=== PATIENT | male | born 1950 | race Caucasian/White ===

== ENCOUNTER 2020-04-10 14:44 | Inpatient (IN) | payer OTHER ==
[~2020-04-10] VITALS: Ht 172.7 cm; Wt 56.9 kg
[2020-04-10] MEDS ORDERED: ABILIFY 5 MG TAB5 MG PO (20:36)
[2020-04-10] MEDS ORDERED: GABAPENTIN100 MG PO (20:38)
[2020-04-10] MEDS ORDERED: GLUCOPHAGE XR500 M1 PO (20:39)
[2020-04-10] MEDS ORDERED: ZOLOFT 50 MG TA50 MG PO (20:39)
[2020-04-10] MEDS ORDERED: ZESTRIL10 MG PO (20:39)
[2020-04-10] MEDS ORDERED: ZOCOR 10 MG TAB10 MG PO (20:39)
[2020-04-10 22:30] VITALS: BP 126/58
--- NOTE | 2020-04-11 02:40 | NUR ---
PATIENT ADMITTED TO [facility] FROM [facility] ED. NEGATIVE COVID 19PCR. PATIENT CAME BY STRETCHER. HE DID NOT HAVE ANY BELONGINGS. HE HAD GOWN ON. PATIENT IS A/0X3. HE CAME FROM [facility]. HE CAME FROM [facility]. YESTERDAY PATIENT WAS THREATINING SUICIDE WITH CORDS IN HIS ROOM. HE HAS DENIED SI/HI HERE ON [facility]. HE STATES HE IS PARALYZED FROM WAIST DOWN AND IS NOT ABLE TO HOLD THINGS IN HIS HANDS WELL. HE HAD A CONDOM CATHETER ON THAT EMS HAD PLACED HE SAID. THIS CAME OFF AND CATHETER DISCARDED. PATIENT DOES VOID WITHOUT PROBLEMS. HE IS INCONTINENT. ED REPORT [place] STATES THAT MS SAID PATIENT WALKS. PATIENT WAS IN BED ALL NIGHT AND DENIES BEING ABLE TO WALK. PATIENT HAS CHRONIC NECK/BACK PAIN. HYDROCODONE 325/5MG PO ORDERED BY DR. HALEY ONE TIME [facility]. PATIENT BEING TURNED PRN AND INCONTINENCE CHECKS. PATIENT HAS HX OF HTN, AND DM. HE HAS PARANOID SCHIZOPHRENIA HISTORY AND DEPRESSION, ANXIETY. PATIENT HAS BEEN CALLING OUT AND ANXIOUS. MEDS ORDERED AND TRAZADONE 50MG AND HYDROXIZINE SANTA 50MG GIVEN TO HELP PATIENT SLEEP ONCE RECEIVED ON UNIT. HYDROCODONE DID HELP RELEIVE PAIN FROM 8 TO 2. PATIENT APPEARS TO BE SLEEPING IN BED. BED IN LOW POSITION AND BED ALARM ON. ROUTINE ROUNDS TO ASSESS SAFETY AND STATUS OF PATIENT. VSS. POSITIVE BOWEL SOUNDS X 4. ABDOMEN SOFT/NONTENDER, LCTA BILATERALLY, HEART S1S2 HEARD AND REGULAR. NO WOUNDS SEEN AT THIS TIME. CONTINUING TO MONITOR. PATIENT HAS MEDICARE A AND B. PATIENT VERBALIZED CONSENT OK BUT IS UNABLE TO SIGN. HE IS A VOLUNTARY ADMIT.
[2020-04-11 09:13] VITALS: BP 108/54
--- NOTE | 2020-04-11 15:19 | NUR ---
SW met with pt. she also completed a slums in which pt scored a 15/30. SLUMS may need to be repeated because during assessment pt yelled out in pain several times about his hip. He also did not participate in areas such as the clock because he says he cannot use his hands and has to be fed. Pt said he is homeless. Before going to [facility] and [facility] he was in a program called [employer] that serves the homeless. He said his son he has been estranged from for approx. 5 years; he lives some where in [facility]. His brother committed sx 1 year ago. SW team will continue to follow pt during his stay on this unit.
--- NOTE | 2020-04-11 15:19 | NUR ---
Alert and orientated X4. States he has a severe spinal cord injury X2 and is unable to walk, feed himself. States he has low back pain. Multiple requests to feed, toilet, reposition. At times is able to bear wt, at other times does not bear any wt. Seen picking up food and eating but then states he needs to be fed. States he has had several thoughts of suicide prior and since admission but does not verbalize a plan. Denies HI. Breath sounds clear t/o, bilaterally equal. Reg HR auscultated. Color pink with brisk capillary refill and palpable peripheral pulses. Incontinent of large amt yellow urine. Attempted to have BM X 2 without success. Active bowel sounds over soft, flat abdomen. Dr. Garcia contacted r/t pain, meds given per order. Up to WC most of AM, placed in gerichair after lunch. Currently in bed.
[2020-04-11 20:15] VITALS: BP 107/52
[2020-04-11 20:46] VITALS: BP 107/52
--- NOTE | 2020-04-12 03:07 | NUR ---
PATIENT VERY FUSSY AND NEEDY. HE CAN DO MORE THAN HE SAYS HE CAN DO AND DOES LIKE THE ATTENTION OF BEING WAITED ON. PATIENT STATES TONIGHT THAT HE NEEDS TO GET OUT OF HERE [facility] BECAUSE HE HAS BACK SURGERY ON MONDAY 04/16. HE TOLD ME IT WAS [facility]. PT RINGING HIS ECKERT TO HAVE HIS PILLOW PLACED UNDER HIS HEAD. HE WAS GIVEN PRN HYDROXYZINE AND HYDROCODONE AT HS FOR HIS BACK PAIN OF 8/10 AFTER HAVING TYLENOL 3 HOURS EARLIER. HE IS INCONTINENT AND HAS VOIDED X3 TONIGHT. BED IN LOW POSITION AND BED ALARM ON. HE DENIES SI/HI/AVH. PATIENT IS WANTING TO WORK WITH PT/OT SOON. CONTINUING TO ASSESS FOR SAFETY AND STATUS OF PATIENT.
[2020-04-12 09:59] VITALS: BP 123/62
--- NOTE | 2020-04-12 11:32 | NUR ---
VIRA contacted Lacho Clifford to see if he had ever worked with pt. He said he has not. VIRA contacted Henrietta to speak to his showcase trimmer. VIRA was told by the conditioner tumbler operator that pt is no longer active in their system. VIRA inquired why and was transferred to another line where SW left a msg. SW team will continue to follow pt during her stay on this unit.
[2020-04-12 12:40] VITALS: BP 123/62
--- NOTE | 2020-04-12 14:57 | NUR ---
ASSUMED PATIENT CARE AT 0700, PATIENT WAS IN THE DAY ROOM.HIS VITAL SIGNS WERE STABLE. PATIENT WAS NEEDY, HE COMPLAINED OF LEFT HIP PAIN AND ASKED TO BE REPOSITIONED EVERY 5 MINUTES, HE WAS IRRITABLE AND CALLING OUT FOR HELP MOST PART OF THE MORNING AFTER BREAKFAST. AT BREAKFAST PATIENT STATED THAT HIS HANDS FEELS LIKE HARRIS BITE, HE ALSO STATED HIS HANDS FEELS NUMB. PATIENT DUMPED HIS COFFEE AT BREAKFAST ON THE FLOOR, PATIENT STATED HE DUMPED HIS COFFEE BECAUSE IT WAS TOO HOT. PATIENT STATED HIS GOAL WAS TO HELP FEED HIS SELF. OT WORKED WITH HIM. PATIENT WAS ABLE TO PARTIALLY ACHIEVE HIS GOAL DURING LUNCH.HIS CONCERN WAS ABOUT HIS CONSULTATION WITH A HOSPITAL SURGEON. HE ATE 100% OF HIS LUNCH WITH ASSISTANCE. HE WAS ABLE TO USE A SPOON RAPPED AROUND A WASH CLOTH TO EAT. HOWEVER HE STILL NEEDS HELP PICKING UP THE FOOD.
--- NOTE | 2020-04-12 16:43 | NUR ---
PT YELLING HELP AND STATED HE VOIDED AND DIDN'T HAVE A URINAL. PT WANTED SOMETHING FOR PAIN AND MENTIONED HYDROXYZIN. ADM HYDROCODONE 5MG PO AND HYDROXYZIN 50MG PO. PT WANTED NURSE TO HELP WITH HIS LEFT LEG TO PUT IT DOWN ON THE BED. PT SEEMS STIFF IN LOWER EXT.
--- NOTE | 2020-04-12 17:00 | NUR ---
PT WAS ASSISTED TO VLADIMIR CHAIR TO DINING ROOM. PT NEEDS ASSISTANCE WITH EATING.
[2020-04-12 20:30] VITALS: BP 109/51
--- NOTE | 2020-04-13 03:07 | NUR ---
Assumed care of patient this pm shift. Patient alert and oriented x3. Patient takes medications whole with thin fluids. Vital signs are stable. Patient is considered a falls risk, falls precautions in place. Patients affect is euthymic. Normal speech and tone. No delusions or hallucinations noted. Patient denies hi/si. Assessment shows no signs of acute distress. We will continue to monitor per hospital policy.
[2020-04-13 08:16] VITALS: BP 119/65
[2020-04-13 08:30] VITALS: BP 119/65
--- NOTE | 2020-04-13 09:40 | NUR ---
PT LYING IN BED AND WANTING HELP WITH CHANGING HIM, HE SAID HE WAS INCON. OF URINE. PT STATED HE WAS GETTING WORSE AND WANTED TO GO TO ER. PT HANDS WEAKNESS BILATERALY. PT STRAIGHTENED OUT LEGS AND WAS SHAKING. PT DIDN'T HAVE THE SHAKING TO EXT. SOMEONE THAT IS PARALIZED. PT TOOK MEDS WHOLE WITH WATER. PT GETTING FED BREAKFAST THIS AM BY AIDE. PT DRANK ALL OF ENSURE DRINKS.
--- NOTE | 2020-04-13 09:41 | NUR ---
ADM HYDROCODONE 5MG PO AND HYDROXYZIN 50MG PO FOR PAIN TO BACK AND ALSO ANXIETY.
--- NOTE | 2020-04-13 17:23 | NUR ---
ADM HYDROCODONE 5MG PO FOR PAIN TO BACK OF 7 ON 1-10 SCALE AND HYDROXYZIN 50MG PO FOR ANXIETY. PT LYING IN BED AND INCON OF URINE, HE IS AWARE OF URINE INCON AND WANTS CHANGED. PT ABLE TO ROLE IN BED SIDE TO SIDE WITH ASSIST. SEEMS WHEN PT HEAD IS PUT DOWN HE HAS A SPASM TO LEGS. PT DID GET UP IN VLADIMIR CHAIR FOR BREAKFAST.
[2020-04-13 19:46] VITALS: BP 116/53
--- NOTE | 2020-04-14 03:56 | NUR ---
04-13-20 CARE TRANSFERRED 1899 OBSERVED PT SUPINE IN BED ON CHUX. PT AAOX4, VSS, RR EVEN AND NONLABORED ON RA. PT DENIES SI/HI. PT REPORTS PAIN IN LOWER BACK AND SCALES 7 ON 0-10 SCALE. PT WAS REPOSITION FOR COMFORT. DURING MEDICATION ADMIN PT HAD NO DIFFICULTIES AND PT WAS REPOSITION AGAIN FOR COMFORT AND PT IS FREE OF BRIEF, REDNESS NOTED IN JENNY AREA, ZERO SKIN BREAKDOWN. LATER NOTED PT WAS NOT RESTING AND PRN MEDICATION ADMIN AND PT WAS REPOSITION. LATER NOTED PT RESTING WITH EYES CLOSED; ZERO S/S OF ACUTE DISTRESS NOTED. PT WILL CONTINUE TO BE MONITOR PER [facility] PROTOCOL.
[2020-04-14 09:18] VITALS: BP 106/52
[2020-04-14 20:14] VITALS: BP 117/48
--- NOTE | 2020-04-15 01:56 | NUR ---
04-14-20 CARE TRANSFERRED 1900 OBSERVED PT SITTING IN [facility] IN DAY ROOM WATCHING TV. PT AAOX4, VSS, RR EVEN AND NONLABORED ON RA, PT REPORTS PAIN IN LOWER BACK AND SCORES 7 ON 0-10 SCALE. PT PRESENTS IRRITABLE AND DEMANDING BUT HAS BEEN COOPERATIVE THROUGHOUT NURSING ASSESSMENT. PT REQUESTED FLUID AND PT DRANK TWO APPLE JUICE BOXES. DURING MEDICATION ADMIN PT HAD NO DIFFICULTIES. PT WAS ASSISTED TO ROOM BY RN AND RETORT FURNACE HELPER AND DRY BRIEF APPLIED AND JENNY-AREA CLEANED WITH SOAP AND WATER NOTED REDNESS, NO SKIN BREAKDOWN. LATER PT WAS REPOSITION FOR COMFORT AND PRN MEDICATION MANAGED PAIN AND AGITATION, ASSISTED PT WITH DRINKING WATER AND ANOTHER APPLE JUICE BOX. LATER NOTED PT RESTING COMFORTABLE WITH EYES CLOSED. ZERO S/S OF ACUTE DISTRESS NOTED, PT WILL CONTINUE TO BE MONITOR PER [facility] PROTOCOL.
[2020-04-15 07:50] VITALS: BP 113/42
[2020-04-15 08:00] VITALS: BP 113/42
--- NOTE | 2020-04-15 08:42 | NUR ---
PT OUT IN DINING ROOM FOR BREAKFAST. PT STATED HE IS UNABLE TO FEED SELF OR OPEN PACKAGES ON TRAY. HE SAID HE HAS A APT AT [facility] FOR SURGERY CONSULT TOMMORROW AT 10:30 AM, PT WOULD LIKE TO GO THE APT. WHEN PT MOVES HIS LEGS STRAIGHTEN OUT. PT HAS WEAKNESS TO HANDS AND NOT ABLE TO MAKE A FIST HE CAN ONLY USE HIS INDEX FINGER AND THUMB LIKE A PINCHER. LUNGS CLEAR. HE WEARS A BRIEF AND KNOWS WHEN HE HAS TO VOID OR BM. PT TAKES MEDS WHOLE.
--- NOTE | 2020-04-15 08:44 | NUR ---
ADM HYDROCONE 5MG PO AND HYDROXAZINE 50MG PO FOR PAIN AND ANXIETY TO LEFT HIP AND HAND.
--- NOTE | 2020-04-15 16:59 | NUR ---
VIRA tried calling Carlos several times to confirm patient's surgery he states is scheduled tomorrow. The phone rang repeatedly and eventually disconnected; not able to speak to anyone to confirm. VIRA left a message with the VIRA and DON at [facility] to confirm his living status there.
--- NOTE | 2020-04-15 17:51 | NUR ---
ADM HYDROCODONE 5MG AND HYDROXYZINE 50MG PO FOR ANXIETY. PT WANTED ASSISTANCE TO GET BACK TO BED BEFORE HAND COUNTER WAS HERE. PT STATED THAT HE WAS INCONT OF URINE AND NEEDED CHANGED. PT STATED HE HAS SHOULDER STRENGTH AND WRIST STRENGTH, JUST NOT HIS FINGERS ARE WEAK.
[2020-04-15 20:04] VITALS: BP 134/58
--- NOTE | 2020-04-16 03:49 | NUR ---
04-15-20 CARE TRANSFERRED 1899. PT AAOX4, VSS, RR EVEN AND NONLABORED ON RA. PT DENIES SI/HI. PT REPORTS PAIN 7 ON 0-10 SCALE. PT REPORTS BEING CONCERNS ABOUT HIS ORTHO CONSULT AT [facility]. PT WAS CLEAN UP WITH LARGE AMOUNT OF YELLOW URINE ON CHUX. PT HAS REDNESS IN JENNY AREA, ZERO SKIN BREAKDOWN, PT WAS CLEANED WITH SOAP AND WATER THEN DRIED, AND PLACED ON CLEAN CHUX (no brief). PT HAS BEEN REPOSITION. PT PRESENTS IRRITABLE BUT HAS REMAINED CALM AND COOPERATIVE. ZERO S/S OF ACUTE DISTRESS NOTED, PT WILL CONTINUE TO BE MONITOR PER [facility] PROTOCOL.
[2020-04-16 07:55] VITALS: BP 117/61
[2020-04-16 08:00] VITALS: BP 117/61
--- NOTE | 2020-04-16 08:10 | NUR ---
PT RESTING IN BED. PT DIDN'T WANT TO EAT ANY BREAKFAST THIS AM. PT WENT BACK TO SLEEP WHEN OFFERED BREAKFAST.
--- NOTE | 2020-04-16 08:41 | NUR ---
PT RESTING QUIETLY IN BED. GAVE PT FRESH WATER.
--- NOTE | 2020-04-16 11:33 | NUR ---
PT GETTING UP AT THIS TIME X2 ASSIST. PT STATED PAIN IS 7 ON 1-10 SCALE TO BACK. ADM NORCO 5MG PO AND ALSO HYDROLZINE 50MG PO FOR ANXIETY. PT TOOK MEDS WHOLE. PT NEEDED ASSIST WITH CUP TO DRINK. PT IN VLADIMIR CHAIR AT THIS TIME. PT STILL HAS NUMBNESS TO HANDS.
--- NOTE | 2020-04-16 17:28 | NUR ---
PT THREW TRAY OVER ON FLOOR BECAUSE HE WAS GETTING PROMPT THAT HE COULD FEED HIMSELF. PT STATED I CAN'T FEED MYSELF. DOESN'T THE MRI GIVE ME JUSTICE. PT WANTING HELP AFTER WITH PILLOW ADJUSTMENT AND ALSO HE WAS LEANING OVER IN CHAIR AND NEEDED HELP SITTING BACK UP. PT WANTING TO GO BACK TO ROOM ALSO.
[2020-04-16 19:28] VITALS: BP 94/46
[2020-04-16 20:30] VITALS: BP 94/46
--- NOTE | 2020-04-16 22:41 | NUR ---
PATIENT HAS BEEN SLEEPING IN BED SINCE 190. HE DID AWAKEN TO ASK FOR PAIN MED AND TOOK HIS HS MEDS WITH OUT ISSUE. PATIENT HAS CHRONIC BACK PAIN AND WAS 8/10 AT 1999. HYDROCODONE 5/325MG PO GIVEN. PATIENT DENIES SI/HI/AVH. HE DID NOT HAVE A BM TODAY. PATIENT HAS BEEN CALM AND COOPERATIVE SO FAR TONIGHT. ROUTINE ROUNDS TO ASSESS STATUS AND SAFETY OF PATIENT. BED ALARM ON AND BED IN LOW POSITION. ROUTINE ROUNDS TO ASSESS STATUS AND SAFETY OF PATIENT. CONTINUING TO MONITOR.
--- NOTE | 2020-04-17 08:10 | NUR ---
RT Progress Note- During Garrett's first week of admission on [facility] he was fairly resistant to participation in both the milieu and recreation therapy groups. He had displayed some behaviors of yelling out and little social tolerance, however this has improved and patient is able to socialize in an appropriate and non disruptive manner. Garrett does become irritable quickly and complains often, but is able to refocus with instruction during groups. [employer] will continue to encourage this behavior as well as continued participation.
[2020-04-17 08:51] VITALS: BP 100/58
[2020-04-17 08:54] VITALS: BP 91/53
[2020-04-17 08:57] VITALS: BP 93/58
--- NOTE | 2020-04-17 12:38 | NUR ---
SW spoke with the nursing coating supervisor about pt; she spoke with PT and OT who said they are going to reevaluate him for SNF stay. SW team will contiue to follow pt during her stay on this unit.
--- NOTE | 2020-04-17 17:51 | NUR ---
Alert and orientated X4. Denies SI/HI. Pt with frequent requests to turn, reposition, assist with cares. [place] given X 2 for L hip pain with little results. Hydroxizine given for anxiety at 1730 per pt request. Breath sounds clear. Reg HR auscultated. Color pink with brisk capillary refill and palpable peripheral pulses. Incontinent of yellow urine. Active bowel sounds over soft, rounded abdomen. Firm brown stool per brief. Pt. up in day room for meals, resting in bed between meals.
[2020-04-17 19:30] VITALS: BP 113/47
--- NOTE | 2020-04-18 00:01 | NUR ---
Assumed care on 04/17/20 @ 19:15, in his room in bed. Awake alert oriented x3, cooperated with assessment, HRRR, Lungs CTA bilat, ABD n x 4 Q. Compliant with medication administration, taking meds whole with water. Able to hold his cup of water to drink. Bed in low position, bed alarm set, incontinent care provided as needed, voids yellow urine per jamison in bed. Rounding as per unit protocol.
[2020-04-18 00:07] VITALS: BP 113/47
[2020-04-18 09:14] VITALS: BP 129/45
--- NOTE | 2020-04-18 11:29 | NUR ---
SW sent referrals for skilled to the following: [facility], [facility], [facility], and [facility]. SW team will continue to follow pt during his stay on this unit.
--- NOTE | 2020-04-18 15:28 | NUR ---
0700 ASSUMED CARE OF PATIENT, PATIENT IN BED AT THAT TIME SLEEPING. PATIENT OUT TO DAYROOM IN [facility] FOR BREAKFAST. PATIENT ASSISTED WITH FEEDING. MEDICATION TAKEN WHOLE WITHOUT DIFFICULTY. PATIENT SITS IN DAYROOM AFTER BREAKFAST FOR A WHILE. C/O PIAN TO LEFT HIP RATES A 8 ON NUMERIC PAIN SCALE. 0855 HYDROXAZINE AND HYRCODONE GIVEN PER PATIENT REQUEST. PATIENT C/O INCREASED ANXIETY AT THIS TIME WELL. PATIENT BACK TO ROOM TO REST IN BED PATIENT STATES "THIS CHAIR HURTS TO BE SITTING FOR TO LONG". PATIENT REPOSITIONED IN BED FROM BACK TO RIGHTSIDE THE LEFT SIDE HURTS TO MUCH. PATIENT INCONTINENT OF URINE, PATIENT CLEANED UP AND GOWN CHANGED. YELLOW URINE NOTED TO PAD. WILL CONTINUE TO OBSERVE
--- NOTE | 2020-04-18 18:05 | NUR ---
PATIENT TRANSFERED TO X2 ASSIST AFTER CHANGING BRIEF. PATIENT TO DAYROOM FOR DINNER. ASSISTED WITH MEAL, PATIENT DOES ATTEMPT TO FEED SELF. PATIENT YELLING OUT STATING HE HAS LOTS OF PAIN TO LEFT HIP. HYDROCODONE 1 TAB GIVEN AT 1800. WILL CONTINUE TO OBSERVE
[2020-04-18 19:07] VITALS: BP 94/55
--- NOTE | 2020-04-19 05:02 | NUR ---
Assumed care of pt @ 1900. Pt calm et cooperative this shift. Took medications whole without difficulty. Ambulates with assistance of w/c. Socialized in dayroom with peers until HS. VSWNL. Health assessment with no abnormalities noted at present time. Denies SI/HI/AVH at present time. Currently resting in bed with eyes closed. Will continue to monitor per unit protocol.
[2020-04-19 09:48] VITALS: BP 111/66
--- NOTE | 2020-04-19 10:16 | NUR ---
Alert and orientated X4. Denies SI/HI. Initially refusing to get up for breakfast d/t fearing his back will hurt. Once promised to go back to bed once breakfast given he agreed to get up. Irritable and demanding at times, manipulative. Calm and cooperative at other times. Requested pain med at breakfast for pain in lower back, states it is a 6-7. Also requested hydroxizine. States his anxiety is a 7. Hydrocodone and cyclobenzaprine given for pain/spasms. States spasms are worse today. Hydroxizine given PO for anxiety. Breath sounds clear. Reg HR auscultated. Color pink with brisk capillary refill and palpable peripheral pulses. Incontinent of yellow urine in bed, cleaned and repositioned. Incontinent of very large, very firm brown, formed stool. Active bowel sounds over soft, flat abdomen. Currently sleeping in room without s/o distress.
[2020-04-19 20:29] VITALS: BP 105/51
--- NOTE | 2020-04-20 05:29 | NUR ---
Assumed care of pt @ 1900. Pt calm et cooperative this shift. Took medications whole without difficulty. Ambulates the unit with assistance of w/cShelia MARY. Health assessment with no abnormalities noted at present time. [place] catheter in place et patent draining clear yellow urine with an output of 1200mL this shift. Isolated in room most of shift. Denies SI/HI/AVH at present time. Currently resting in bed with eyes closed. Will continue to monitor per unit protocol.
[2020-04-20 07:30] VITALS: BP 127/59
[2020-04-20 07:40] VITALS: BP 127/59
--- NOTE | 2020-04-20 08:35 | NUR ---
PATIENT REFUSING TO EAT AT THIS TIME. PATIENT REPOSITIONED TO LEFT SIDE PER PATIENT REQUEST.
--- NOTE | 2020-04-20 13:19 | NUR ---
ASSUMED PATIENT CARE AT 0700. PATIENT WAS IN BED RESTING. PATIENT WAS ALERT AND ORIENTED X4, VITAL SIGNS WERE STABLE. PATIENT WAS CALM AND COOPERATIVE WITH CARE AND MEDICATION. PATIENT REFUSED TO EAT BREAKFAST. HE TOOK ENSURE FOOD SUPPLEMENT. PATIENT ATE LUNCH WITH MINIMAL ASSISTANCE. PATIENT STAYED UP IN THE GERICHAIR AFTER LUNCH, HE WAS ASSISTED TO BED AND HAD A BOWEL MOVEMENT AT 1300. PATIENT GOAL WAS TO FEED HIMSELF BETTER. AND HE DID ACHIEVE THE GOAL DURING LUNCH.PATIENT CONCERNS WAS TO USE A TELEPHONE. PATIENT GOT PRN HYDROCODONE FOR PAIN DURING AM. HIS PAIN RATING WAS 8 OUT OF 10. WHEN PATIENT WAS REASSESS HE SAID HE HAD PARTIAL RELIEF AND HIS PAIN WAS DOWN TO A 4. WILL CONTINUE TO MONITOR AND ASSESS PATIENT.
[2020-04-20 19:18] VITALS: BP 96/39
[2020-04-21 07:40] VITALS: BP 117/60; BP 96/39
[2020-04-21 10:17] VITALS: BP 117/60
--- NOTE | 2020-04-21 13:46 | NUR ---
SW attempted to follow up with referrals that were previously faxed. (See VIRA notes.) SW unable to reach admissions due to the weekend. SW team will continue to follow up.
--- NOTE | 2020-04-21 15:10 | NUR ---
Assumed patient care at 0700. Patient was in his room resting. patient was alert and oriented x4, his vital signs were stable.Patient denies SI/HI. Patient took his medication whole without difficulty. Patient ambulate with a Gerichair. patient was calm and cooperative with care, at times patient is demanding and irritable. Patient refused his breakfast, he drank orange juice. patient ate lunch. AT 0830 PATIENT [place] catheter fell off. At 1021 patient was given PRN hydrocodone for pain in his neck and hands. patient attempted to feed self at lunch with minimal assistance from staff. Patient is currently resting in bed.
[2020-04-21 19:07] VITALS: BP 126/57
--- NOTE | 2020-04-21 22:48 | NUR ---
Assumed care on 04/21/20 @ 19:15, up in a gen chair in the day room. Oriented x 3-4. Off on the day of the week only. Confused dayana noted, when speaking to staff only ten feet away, hollers out in a yell. When reminded that indoor voices are important in a hospital, he yells that if my spine is hurting I'M going to yell. Pain assessment conducted and after providing pain Norco5/325, et sched meds, continues to holler out saying he wants pain meds. Reoriented to time frame, that he had just taken his pain meds and needs to give time to work, he quieted slightly. Olanzaine 10mg po provided for anxiety. Transfer from gen chair to bed was a x2 transfer and during which, patient did not bear own weight or even extend his legs. He hollered to "let go of me", and when reminded that he could not stand on his own, he made confused comments. Follow up assessment on [place] 5/325 noted to be sleeping. Bed in low position, bed alarm set, will continue to monitor as per unit protocol for safety and comfort.
[2020-04-22 07:35] VITALS: BP 121/58
--- NOTE | 2020-04-22 11:41 | NUR ---
Care assumed of patient at 0715: Patient resting in bed at start of shift. Easily aroused. Alert and oriented x4. Calm, pleasant and cooperative. Denies SI/HI/AH/VH. Denies depression and anxiety. Reports chronic pain to back. Denied PRN pain medication and only accepted scheduled AM Gabapentin. Took AM medication whole without difficulty. Declined breakfast. Declined getting out of bed this AM. Incontinent of bladder. Required max assist x1 for pilar care and linen change. Patient did get up in gen chair for lunch. Required max assist x2, was able to hold weight on legs for stand/pivot transfer. No agitation or irritability observed. Seated quietly in dayroom at this time.
--- NOTE | 2020-04-22 13:26 | NUR ---
Assess due to length of stay. Admit to H unit with hallucinations, paranoid schizophrenia, and SI. Hx diabetes. BG controlled. Refuses several breakfast meals throughout week but will take snacks, eats 100% for lunch and dinner and drinking 90-100% of ensure supplements with meals. No wt hx available. Only wt available is admit wt taken on 04/10. Continue current nutrition interventions and suggest obtain weekly weights. low nutrition risk
--- NOTE | 2020-04-22 15:32 | NUR ---
SW sent referrals to the following: [facility]
--- NOTE | 2020-04-22 16:20 | NUR ---
1610 PATIENT TRANSFERED TO SICU DUE TO POSITIVE COVID TEST. PATIENT ADMITTED TO ROOM 225. PATIENT TRANSFERED TO BED X2 ASSIST. PATIENT CALM RESTING IN BED AT THAT TIME. ICE WATER GIVEN TO PATIENT, PATIENT WORRIED ABOUT DRINKING WATER TILL CATHETER IS IN. 1645 CONDOM CATHETER APPLIED, PATIENT HAPPY AND DRINKING WATER AT THIS TIME. PATIENT CALM AND COOPERATIVE. WILL CONTINUE TO OBSERVE
[2020-04-22 19:57] VITALS: BP 159/74
[2020-04-23 09:14] VITALS: BP 132/47
--- NOTE | 2020-04-23 12:54 | NUR ---
VIRA sent referral to the following all [facility] [phone] [facility] [phone] [facility] [phone]
[2020-04-23 20:04] VITALS: BP 93/54
--- NOTE | 2020-04-23 20:09 | NUR ---
Alert and orientated X4. Calm and cooperative most day but is demanding with frequent, fussy requests at other times. Denies SI/HI. Breath sounds clear. Reg HR auscultated. Color pink with brisk capillary refill and palpable peripheral pulses. External cathetar leaking, removed. Incontinent of yellow urine. Cathetar replaced early afternoon, no voids to obtain ordered UA. Large, formed brown BM late in afternoon. Active bowel sounds over soft, flat abdomen. Up to chair x 1 for approxamately 1 hr, then shoulder started hurting and needed to be placed back in bed. Requested prn med for pain, anxiety and spasms, given per order. Currently in bed watching TV without s/o distress.
--- NOTE | 2020-04-24 05:32 | NUR ---
ASSUMED PT'S CARE BEGINNING OF THIS PM SHIFT. ALERT AND ORIENTED. VSS ON RA. PT WAS COOPERATIVE WITH CARE. PT TOOK MEDS PER EMAR. SLEPT OFF AND ON. CALLS OUR SEVERAL TIMES. FALL PRECAUTION IN PLACE. VOIDING VIA CATHETER. TO COLLECT URINE SAMPLE THIS AM. WILL CONTINUE TO MONITOR.
[2020-04-24 06:32] LABS: HEMOGLOBIN 13.3 gm/dL (14.0-18.0); MCH 31.1 pg (26.0-34.0); MCHC 33.1 g/dL (28.0-37.0); MCV 93.7 fL (80.0-100.0); RBC 4.27 mil/uL (4.50-6.00); RDW 13.6 % (10.5-14.5); WBC 12.7 thou/uL (4.0-11.0)
[2020-04-24 06:52] LABS: ALBUMIN 3.4 g/dL (3.4-5.0); CALCIUM 9.5 mg/dL (8.5-10.1); CREATININE 0.7 mg/dL (0.7-1.3); POTASSIUM 4.1 mmol/L (3.5-5.1); TOTAL BILIRUBIN 0.5 mg/dL (0.2-1.0); TOTAL PROTEIN 6.8 g/dL (6.4-8.2)
[2020-04-24 07:20] LABS: URINE BILIRUBIN NEGATIVE (Negative); URINE BLOOD NEGATIVE (Negative); URINE CLARITY CLEAR; URINE COLOR YELLOW; URINE GLUCOSE-RANDOM* NEGATIVE (Negative); URINE KETONES NEGATIVE (Negative); URINE LEUKOCYTES NEGATIVE (Negative); URINE NITRITE NEGATIVE (Negative); URINE PROTEIN (DIPSTICK) NEGATIVE (Negative); URINE SPECIFIC GRAVITY 1.015 (1.005-1.035)
[2020-04-24 10:49] VITALS: BP 128/70
--- NOTE | 2020-04-24 14:12 | NUR ---
SW sent referral to the following: [facility]- declined thye can't meet Pts needs [facility]- declined due to no beds.
--- NOTE | 2020-04-24 15:16 | NUR ---
VIRA contacted Su at [facility]. Su stated they would be able to accept the Pt. VIRA informed the Pt tested COVID +. Su informed they would still be able to accept Pt, however Pt would need to go to [facility] to quarantine for 10 days. VIRA stated the Pt would be okay with this. Su stated she would need to speak to the Pt. VIRA provided Su the phone number to the [facility] nurses station so that she could talk to the Pt. d/c is scheduled for 04/25/2020 @ 1600 to [facility]
--- NOTE | 2020-04-24 18:49 | NUR ---
0700 ASSUMED CARE OF PATIENT, PATIENT RESTING IN BED QUIETLY. PATIENT SITS UP IN BED FOR BREAKFAST. MEDICATION TAKEN WHOLE THIS AM WITHOUT DIFFICULTY. PATIENT UP TO VLADIMIR CHAIR X2 ASSIST. PATIENT CONTINUES TO YELL OUT FOR NEEDS ALL DAY. PATIENT ASSISTED WITH MEALS. NO C/O PAIN VS STABLE. LUNG SOUND CLEAR, BS ACTIVE. PATIENT BACK TO BED AFTER DINNER @1805 CONDOM CATH APPLIED WITH COLLECTION BAG ATTACHED. PATIENT COMFORTABLE IN BED WITH CALL LIGHT IN HAND.
[2020-04-24 20:29] VITALS: BP 142/59
--- NOTE | 2020-04-25 06:00 | NUR ---
ASSUMED PT'S CARE THIS PM SHIFT. PT ALERT AND ORIENTED. VSS ON RA. PT TOOK MEDS WHOLE WITHOUT DIFFICULTIES. PT CONTINUES TO BE FUZZY AND DEMANDING. CALLED THROUGH SHIFT. PT EDUCATED ON CLUSTER CARE. TO INFORM STAFFING OF WHAT HE WOULD NEED WHILE STAFFING IS IN HIS ROOM, INSTEAD OF CALLING OUT 5 MINS AFTER STAFFING LEAVES HIS ROOM. PT DID NOT COMPREHEND THIS EDUCATION HE KEPT REPEATING SAME THING THROUGH OUT SHIFT. THIS AM, PT CALLED OUT VOICING THAT HE HAS A CUT ON HIS FINGER AND HE WSA BLEEDING AND MIGHT NEED STITCHES. NURSING WENT IN TO ASSESS THE CUT, PT VOICED THAT HE WAS REACHING INTO HIS WALLET TO GET SOME MONEY AND HE CUT HIMSELF. NURSING DID NOT SEE ANY SIGN OF CU OR BLEEDING. PT VOICED THAT HIS WALLET FELL ON THE FLOOR. PT HOWEVER DID NOT HAVE WALLET WITH HIM, AND PT HAVE VOICED SEVERAL TIMES TO STAFFING THAT HE'S UNABLE TO GRAB ANYTHING WITH HIS HANDS BECAUSE HE WAS "PARALYZED". PT SEEMED TO BE HALLUCINATING AT THAT TIME. PT GOT UPSET WHEN NURSING TOLD HIM THERE WAS NO BLOOD. PT STARTED YELLING. NURSING GAVE PT HIS PRN HYDROZYXINE AND ZYPREXA FOR AGITATION. PT THEN VOICED THAT HE "REMEMBERS NOW THAT INSTEAD OF CUT, HE HAD BRUISES ALL OVER FROM ROLLING BACK AND FORTH IN BED". MEANWHILE PT HAVE ALWAYS VOICED THAT HE NEEDS ASSISTANCE WITH MOVEMENT AND ADJUSTMENT AND HAVE ALWAYS CALLED OUT TO HAVE HIS BED ADJUSTED OR REPOSITIONED. PT SLEPT ONLY 2.6 HOURS THIS SHIFT. ANTICIPATED DC TO [facility] TODAY. WILL CONTINUE TO MONITOR.
[2020-04-25 10:32] VITALS: BP 123/60
[2020-04-25] MEDS ORDERED: CYCLOBENZAPRINE5 MG PO (13:05)
[2020-04-25] MEDS ORDERED: HYDROCODON-ACE1 EAC7 PO (13:06)
[2020-04-25] MEDS ORDERED: ATORVASTATIN CA10 MG PO (13:06)
[2020-04-25] MEDS ORDERED: LISINOPRIL40 MG PO (13:06)
[2020-04-25] MEDS ORDERED: REMERON 30 MG T30 M1 PO (13:07)
[2020-04-25] MEDS ORDERED: ZOLOFT25 MG PO (13:07)
[2020-04-25] MEDS ORDERED: ABILIFY10 MG PO (13:07)
[2020-04-25] MEDS ORDERED: GABAPENTIN 100100 MG PO (13:07)
[2020-04-25] MEDS ORDERED: SEROQUEL 25 MG25 M1 PO (13:08)
[2020-04-25] MEDS ORDERED: COLACE 100 MG100 MG PO (13:08)
[2020-04-25] MEDS ORDERED: METFORMIN HCL500 MG PO (13:08)
--- NOTE | 2020-04-25 18:21 | NUR ---
HAS BEEN ANXIOUS/DEMANDING THROUGHOUT AM SHIFT-PREOCCUPIED WITH FINDING HIS STATE ID WHICH HE INSISITS WAS IN JACKET IN ER-GAVE NAME OF ENGAGEMENT ENGINEER WHO SAT WITH HIM IN ER AND REPEATED STORY SEVERAL TIMES SECURITY CONTACTED-ER CONTACTED-5 [facility] ADMITTING NURSE CONTACTED AND VIRA RUBIO CONTACTED BUT NO BELONGINGS LOCATED IN BUILDING. INITITALLY RELUCTANT TO SIGN DC PAPERWORK STATING HE WOULD NOT UNITL HIS CHECK AND ID WERE LOCATED. LATER IN PM AT APPROX 1530 STATES IT I9S HIS CHECK HIS STATE ISSUED ID AND "SOME COOL" THAT IS MISSING. NORCO 5/325 GIVEN PO PRN AT APPROX 1000 AND REPEATED AT APPROX 1615 FOR REPEATED YELLING OUT STATES HE IS IN PAIN IN NECK,BACK AND SHOULDER AND RATES PAIN A 10 OUT OF 10 DECREASING AFTER NORCO TO 4 ON PAIN SCALE. VOIDING PER URINAL-APPETITE GOOD-DOES REQUIRE ASSIST AT MEALS.DISCHARGED VIA CART PER [facility] AT APPROX 1745-ALERT AND TALKATIVE AT TIME OF DC-
[2020-04-26] MEDS ORDERED: SEROQUEL 50 MG50 M1 PO (20:51)
[2020-04-26] MEDS ORDERED: REMERON15 M2 PO (20:51)
[2020-04-26] MEDS ORDERED: LIPITOR10 MG PO (20:52)
[2020-04-26] MEDS ORDERED: FLEXERIL PO (20:52)
== END 2020-04-25 18:30 | DRG 885 ==
LOC: SBH → SICU → SBH 14:44 → SICU 21:44
PROVIDERS: ADMIT Psychiatry & Neurology Psychiatry; ATTEND Psychiatry & Neurology Psychiatry
DX: F20.9 Schizophrenia, unspecified (principal); U07.1 COVID-19; R45.851 Suicidal ideations; F31.9 Bipolar disorder, unspecified; I10 Essential (primary) hypertension; E78.5 Hyperlipidemia, unspecified; E11.42 Type 2 diabetes mellitus with diabetic polyneuropathy; G47.00 Insomnia, unspecified; G89.29 Other chronic pain; M54.9 Dorsalgia, unspecified; M54.2 Cervicalgia; Z88.8 Allergy status to other drugs, medicaments and biological substances
CPT/HCPCS: 10880; 15000

== ENCOUNTER 2020-04-10 15:44 | Emergency (ER) | payer OTHER ==
[~2020-04-10] VITALS: Ht 175.3 cm; Wt 63.5 kg
[2020-04-10] MEDS ORDERED: ABILIFY 5 MG TAB5 MG PO (20:36)
[2020-04-10] MEDS ORDERED: GABAPENTIN100 MG PO (20:38)
[2020-04-10] MEDS ORDERED: GLUCOPHAGE XR500 M1 PO (20:39)
[2020-04-10] MEDS ORDERED: ZOCOR 10 MG TAB10 MG PO (20:39)
[2020-04-10] MEDS ORDERED: ZESTRIL10 MG PO (20:39)
[2020-04-10] MEDS ORDERED: ZOLOFT 50 MG TA50 MG PO (20:39)
[2020-04-10 20:44] VITALS: BP 116/69
== END 2020-04-10 20:50 ==
LOC: ER 15:44
DX: R45.851 Suicidal ideations (principal); Z20.828 Contact with and (suspected) exposure to other viral communicable diseases

== ENCOUNTER 2020-04-26 18:27 | Inpatient (IN) | payer OTHER ==
[~2020-04-26] VITALS: Ht 167.6 cm; Wt 56.7 kg
[~2020-04-26 18:27] MED LIST: ABILIFY 5 MG TAB5 MG PO; ABILIFY10 MG PO; ATORVASTATIN CA10 MG PO; BACLOFEN 10MG T10 MG PO; COLACE 100 MG100 MG PO; CYCLOBENZAPRINE5 MG PO; GABAPENTIN 100100 MG PO; GABAPENTIN100 MG PO; GLUCOPHAGE XR500 M1 PO; HYDROCODON-ACE1 EAC7 PO; LISINOPRIL10 MG PO; LISINOPRIL40 MG PO; METFORMIN HCL500 MG PO; REMERON 30 MG T30 M1 PO; SEROQUEL 25 MG25 M1 PO; SERTRALINE HCL100 MG PO; SIMVASTATIN80 MG PO; ZESTRIL10 MG PO; ZOCOR 10 MG TAB10 MG PO; ZOLOFT 50 MG TA50 MG PO; ZOLOFT25 MG PO
[2020-04-26 18:28] VITALS: BP 88/55
[2020-04-26 20:18] LABS: ABSOLUTE NEUTROPHILS 9.9 thou/uL (1.4-8.2); BASOPHILS 0.4 % (0.0-2.0); EOSINOPHILS 0.1 % (0.0-3.0); HEMATOCRIT 41.8 % (42.0-52.0); LYMPHOCYTES 14.2 % (24.0-44.0); MCH 31.2 pg (26.0-34.0); MCHC 33.3 g/dL (28.0-37.0); MCV 93.6 fL (80.0-100.0); MONOCYTES 10.9 % (1.0-8.0); PLATELET COUNT 166 thou/uL (150-400); POLYS 74.4 % (36.0-66.0); RBC 4.47 mil/uL (4.50-6.00); RDW 13.3 % (10.5-14.5); WBC 13.3 thou/uL (4.0-11.0)
[2020-04-26 20:24] LABS: ANION GAP 11 mmol/L (7-16); BUN 28 mg/dL (7-18); CALCIUM 9.6 mg/dL (8.5-10.1); CHLORIDE 98 mmol/L (98-107); CO2 24 mmol/L (21-32); GLUCOSE 167 mg/dL (74-106); POTASSIUM 3.8 mmol/L (3.5-5.1); SODIUM 133 mmol/L (136-145)
[2020-04-26 20:35] LABS: ALBUMIN 3.4 g/dL (3.4-5.0); SALICYLATE < 2.8 mg/dL (2.8-20.0); SGOT 37 U/L (15-37); SGPT 49 U/L (16-63); TOTAL BILIRUBIN 0.6 mg/dL (0.2-1.0); TOTAL PROTEIN 7.7 g/dL (6.4-8.2); TROPONIN-I <0.06 ng/mL (<0.06)
[2020-04-26 20:51] LABS: AMP/METHAMP Negative (Negative); BARBITURATES Negative (Negative); BENZODIAZEPINES Negative (Negative); COCAINE Negative (Negative); METHADONE Negative (Negative); OPIATES POSITIVE (Negative); PCP Negative (Negative)
[2020-04-26] MEDS ORDERED: SEROQUEL 50 MG50 M1 PO (20:51)
[2020-04-26] MEDS ORDERED: REMERON15 M2 PO (20:51)
[2020-04-26] MEDS ORDERED: LIPITOR10 MG PO (20:52)
[2020-04-26] MEDS ORDERED: FLEXERIL PO (20:52)
--- NOTE | 2020-04-27 12:21 | EKG ---
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
[2020-04-28 00:42] VITALS: BP 137/69
--- NOTE | 2020-04-28 16:02 | NUR ---
VIRA spoke to CASSIDY Durham at [facility] [phone]. She reports patient can return to their facility upon discharge. She stated he can dc straight to [facility] vs. continuing to quarantine at [facility]. She expressed concerns about him receiving a psychiatric eval. VIRA explained he was on the psychiatric service and Dr. Rodríguez has seen him. CASSIDY Cook satisfied with VIRA response. VIRA team will continue to monitor.
--- NOTE | 2020-04-28 16:08 | NUR ---
SW completed assessment and tx plan.
[2020-04-28 17:17] VITALS: BP 117/66
--- NOTE | 2020-04-28 17:39 | NUR ---
CALLED TO GIVE REPORT BUT UNKNOWN NURSE AT THIS TIME. THEY WILL CALL BACK
[2020-04-28 19:45] VITALS: BP 99/51
--- NOTE | 2020-04-29 05:20 | NUR ---
PT ARRIVED TO UNIT VIA CART FROM ER. ADMISSION, MED REC, CARE PLAN, AND INTERVENTIONS ALL COMPLETED. PT IS A SI AND HAS 1:1. ROOM STERILIZED, AND OBSERVATION PROTOCOL IN PLACE. SECURITY NOTIFIED ALSO. PT IS PLEASANT, AND THE ONLY REQUEST WAS TO BE REPOSITIONED AND TO HAVE A DRINK OF WATER.
[2020-04-29 06:59] VITALS: BP 114/66
--- NOTE | 2020-04-29 16:38 | NUR ---
@0900 SW met with Pt in his room concerning discharge. Pt stated he did not want to go back to [facility]. Pt stated he got into an argument with a nurse and they would not feed him. Pt stated he was unable to feed himself and when he asked for help the staff poured the food on his tray, told him to use his hands to fern picker the food. Pt stated he can go live with a friend, however was unable to give an address or phone number to this friend. Pt stated he needs a ride to the bank to get his money out to pay for a hotel room. Pt did not know the name of the bank he needed to go to. Pt then stated he has a spinal cord injury and can't do anything for hisself. SW informed Pt it is not a safe discharge to send Pt to a friends due to his care needs. RANDOLPH asked if Pt would be willing to go to [facility]. Pt stated, " I'll think about it". RANDOLPH educated Pt on the importance of staying at his placement. Also informed if Pt continues to come back to the hospital because he feels he is being mistreated by a facility and continues and refusing to [facility] a petition for guardianship may be the alternative. Pt became argumentative with SW asking if SW can send his to [facility]. RANDOLPH informed that was not a choice at this time. Randolph ended tohe conversation with the Pt informing him again of [facility]. Randolph will follow up
--- NOTE | 2020-04-29 17:28 | NUR ---
Randolph recieved a VM from Su at [place] reconfirming Pt can return and requesting clinical notes. RANDOLPH faxed requested information to Su @ [phone].
[2020-04-29 19:00] VITALS: BP 113/64
[2020-04-30 08:48] VITALS: BP 150/70
[2020-04-30 11:00] VITALS: BP 144/73
--- NOTE | 2020-04-30 11:05 | NUR ---
RANDOLPH spoke with Su at [place]. Su informed Pt will return to [facility]. RANDOLPH talked to Su about Pt's behaviors. Randolph informed Pt may need a guardianship due to Pt's inability to care for himself and unwillingness to stay in a placement. Su agreed and stated she would speak with ramon CONSTANTINO about talking to Pt concerning assigning a DPOA and if not unwilling starting the guardianship process. RANDOLPH talked to Su about Pt's lack of healthy coping skills and Pt using SI statements as a tool to get caregivers to comply with requests. Pt's SI seems to subsided upon admission to the hospital. Once admitted Pt then ask for a new placment. Pt admitted to he made SI statements due to nurses not feeding him and getting upset with staff. RANDOLPH stated Pt has some delsional thoughts on being able to care for hisself at this time or that his friends will care for him. Su did inform the facility has contacted some of the Pt's friend and they were not interested in careing for the Pt. Su believes the Pt may be happier with the [facility] location as it is closer to his friends. Pt will d/c 05/01/2019 to [facility]. Su will call with transportation time on the day of discharge.
[2020-04-30 15:45] VITALS: BP 113/55
[2020-04-30] MEDS ORDERED: NICOTINE TRANSD14 M1 TRANSDERM (18:13)
[2020-04-30] MEDS ORDERED: ZINC SULFATE 2220 MG PO (18:13)
[2020-04-30] MEDS ORDERED: VITAMIN C1000 MG PO (18:14)
--- NOTE | 2020-04-30 19:17 | NUR ---
no disdress noted. progressing towards poc goals. dc tomorrow.
[2020-04-30 19:19] VITALS: BP 109/61
--- NOTE | 2020-04-30 20:54 | NUR ---
PT RESTING AND SLEEPING IN BED. EASILY AROUSED FOR ASSESSMENT. COMPLIANT WITH MEDS AND HS SNACK. INCONTINENT, BED ALARM ON. PT REPOSITIONING BUE, NEEDS ASSIST WITH BLE. DUSKY SKIN TONE.
[2020-05-01 03:18] VITALS: BP 131/68
[2020-05-01 06:58] VITALS: BP 119/62
[2020-05-01 09:13] VITALS: BP 119/62
--- NOTE | 2020-05-01 11:39 | NUR ---
Su CONSTANTINO to inform transportation has been scheduled for 05/01/2019 between 12pm and 12:30pm. Pt will be transported via stretcher by [facility]
== END 2020-05-01 12:11 | DRG 885 ==
LOC: ER 18:27 → 3W 04-27 10:11 → EROBS 04-27 10:11 → 3W 04-28 19:26
PROVIDERS: Emergency Medicine; ADMIT Psychiatry & Neurology Psychiatry; ATTEND Psychiatry & Neurology Psychiatry
DX: F20.0 Paranoid schizophrenia (principal); U07.1 COVID-19; G92 Toxic encephalopathy; R45.851 Suicidal ideations; F31.9 Bipolar disorder, unspecified; I10 Essential (primary) hypertension; F17.200 Nicotine dependence, unspecified, uncomplicated; E78.5 Hyperlipidemia, unspecified; G89.29 Other chronic pain; M54.9 Dorsalgia, unspecified; M54.2 Cervicalgia; E11.42 Type 2 diabetes mellitus with diabetic polyneuropathy; F10.10 Alcohol abuse, uncomplicated; Y90.9 Presence of alcohol in blood, level not specified; Z79.84 Long term (current) use of oral hypoglycemic drugs; Z79.899 Other long term (current) drug therapy; Z88.8 Allergy status to other drugs, medicaments and biological substances
CPT/HCPCS: 10779